=== PATIENT | female | born 1955 ===

== ENCOUNTER 2021-07-19 13:19 | Inpatient (IN) | payer OTHER, MEDICAID ==
[~2021-07-19] VITALS: Ht 165.1 cm; Wt 97.0 kg
[2021-07-19] MEDS ORDERED: FUROSEMIDE 20 MG/2 ML VIAL IV ONE (13:45)
[2021-07-19] MEDS ORDERED: MIDAZOLAM DRIP 50 mg/50mL 50 ML IV ONE (14:09)
[2021-07-19] MEDS ORDERED: ETOMIDATE (2MG/ML) 20ML VIAL IV ONE (14:15)
[2021-07-19] MEDS ORDERED: SUCCINYLCHOLINE CHLORIDE 20 MG/ML 10ML VIAL IV ONE (14:15)
[2021-07-19 14:30] VITALS: BP 137/75
[2021-07-19 15:08] LABS: Basophils # (auto) 0.1 10 ^3/uL (0-0.2); Basophils % (auto) 1.3 % (0.0-2.0); Eosinophils # (auto) 0.1 10 ^3/uL (0-0.8); Eosinophils % (auto) 0.8 % (0.0-7.0); Hematocrit 35.1 % (36.0-46.0); Hemoglobin 11.1 g/dL (12.2-16.2); Lymphocytes # (auto) 2.7 10 ^3/uL (0.4-5.4); Lymphocytes % (auto) 34.6 % (10.0-50.0); Mean Corpuscular Hemoglobin 27.9 pg (28.0-32.0); Mean Corpuscular Hgb Conc. 31.5 g/dL (32.0-36.0); Mean Corpuscular Volume 88.4 fL (80.0-100.0); Monocytes # (auto) 0.8 10 ^3/uL (0-1.3); Monocytes % (auto) 10.5 % (0.0-12.0); Neutrophils # (auto) 4.1 10 ^3/uL (1.6-8.6); Neutrophils % (auto) 52.8 % (37.0-80.0); Nucleated Red Blood Cells % 0.1 %; Red Blood Cells 3.97 10^6/uL (4.0-5.20); Red Cell Distribution Width 20.4 % (11.8-14.3); White Blood Cell 7.7 10^3/uL (4.4-10.8)
[2021-07-19 15:15] VITALS: BP 137/85
[2021-07-19 15:30] LABS: Anion Gap 3 (5-15); Blood Urea Nitrogen 10 mg/dL (7-18); Calcium 8.6 mg/dL (8.5-10.1); Carbon Dioxide 31 mmol/L (21-32); Chloride 106 mmol/L (98-107); Glucose 123 mg/dL (74-106); Potassium 3.8 mmol/L (3.5-5.1); Sodium 140 mmol/L (136-145)
[2021-07-19 15:39] LABS: Alanine Aminotransferase 19 U/L (13-56); Alkaline Phosphatase 90 U/L (45-117); Aspartate Aminotransferase 20 U/L (15-37); BUN/Creatinine Ratio 7.8; Bilirubin, Total 0.6 mg/dL (0.2-1.0); CRP High Sensitivity 4.39 mg/dL (< 0.3); GFR African American 53 mL/min; GFR Non-African American 44 mL/min; Total Protein 7.1 g/dL (6.4-8.2)
[2021-07-19 16:34] VITALS: BP 161/86
[2021-07-19] MEDS: MIDAZOLAM DRIP 50 mg/50mL 50 ML IV SCH ×2 (16:34→17:56)
[2021-07-19] MEDS ORDERED: methylPREDNISolone SOD SUCC 125 MG/2 ML VL ONE (16:38)
[2021-07-19] MEDS ORDERED: methylPREDNISolone SOD SUCC 125 MG/2 ML VL IV ONE (16:45)
[2021-07-19] MEDS: PROPOFOL 100 ML IV SCH (17:00)
[2021-07-19] MEDS: fentaNYL Drip 2500mCg/250mlNS 250 ML IV SCH (17:00)
[2021-07-19 17:30] LABS: Urine WBC None Seen /hpf (0 - 5)
[2021-07-19] MEDS ORDERED: NITROGLYCERIN 0.4 MG SL TAB SL PRN (17:30)
[2021-07-19] MEDS ORDERED: MORPHINE SULFATE INJECTION 2 MG/ML SYRG IV PRN (17:30)
[2021-07-19] MEDS: NOREPINEPHRINE 8 MG/250ML KIT 250 ML IV SCH (18:00)
[2021-07-19] MEDS ORDERED: FUROSEMIDE 100 MG/10ML VIAL IV ONE (18:00)
[2021-07-19] MEDS ORDERED: IPRATROPIUM BROM 0.5 MG/2.5ML INH SOL NEB ONE (18:00)
[2021-07-19] MEDS ORDERED: ALBUTEROL SULF 2.5 MG/0.5ML(0.5%) NEB SOLN NEB SCH (18:00)
[2021-07-19] MEDS ORDERED: MORPHINE SULFATE 4 MG/ML SYR/VIAL IV PRN (18:00)
[2021-07-19] MEDS ORDERED: MEROPENEM 1GM IVPB 100 ML IV ONE (18:00)
[2021-07-19] MEDS ORDERED: ALBUTEROL SULF 2.5 MG/0.5ML(0.5%) NEB SOLN NEB ONE (18:00)
[2021-07-19] MEDS ORDERED: PANTOPRAZOLE 40 MG/10 ML VIAL INJ IV ONE (18:00)
[2021-07-19] MEDS ORDERED: LORazepam 2MG/ML-1ML VIAL IV PRN (18:00)
[2021-07-19] MEDS ORDERED: IPRATROPIUM BROM 0.5 MG/2.5ML INH SOL NEB SCH (18:00)
[2021-07-19] MEDS ORDERED: VANCOMYCIN PER PHARMACY 0 MG IV SCH (18:00)
[2021-07-19 18:04] LABS: Urine Bacteria NONE SEEN /hpf (None Seen); Urine Blood Negative /uL (Negative); Urine Hyaline Cast MOD /lpf (0 - 2); Urine Mucus FEW (None Seen); Urine Specific Gravity 1.015 (1.001-1.035)
[2021-07-19] MEDS ORDERED: SUCRALFATE 1 GM/10 ML ORAL SUSP GT ONE (18:15)
[2021-07-19] MEDS ORDERED: METOPROLOL SUCCINATE XL 50 MG TAB PO ONE (18:15)
[2021-07-19] MEDS ORDERED: MAGNESIUM SULFATE 1GM/100ML 100 ML IV ONE (18:15)
[2021-07-19] MEDS ORDERED: ATORVASTATIN 20 MG TAB PO ONE (18:15)
[2021-07-19 18:37] VITALS: BP 108/61
[2021-07-19 19:37] LABS: Partial Thromboplastin Time 22.9 sec (23.6-33.0)
[2021-07-19 19:50] VITALS: BP 118/71
[2021-07-19] MEDS ORDERED: ACETAMINOPHEN 325 MG RECT SUPP PR PRN (20:30)
[2021-07-19] MEDS: FUROSEMIDE 40 MG/4 ML VIAL IV SCH (21:11)
[2021-07-19] MEDS: VANCOMYCIN 1GM/250ML 250 ML IV SCH (22:14)
[2021-07-19 22:18] VITALS: BP 124/76
[2021-07-19] MEDS: methylPREDNISolone SOD SUCC 40 MG/ML VL IV SCH (22:43)
[2021-07-19] MEDS: SUCRALFATE 1 GM/10 ML ORAL SUSP GT SCH (22:55)
[2021-07-19] MEDS: POTASSIUM EFFERVESENT TAB 25 MEQ GT SCH (22:56)
[2021-07-20] VITALS (67 sets, daily range): BP systolic 91–139; BP diastolic 56–85
[2021-07-20] MEDS: MIDAZOLAM DRIP 50 mg/50mL 50 ML IV SCH ×4 (00:19→23:40)
[2021-07-20] MEDS: MEROPENEM 1GM IVPB 100 ML IV SCH ×3 (02:19→17:13)
[2021-07-20] MEDS: methylPREDNISolone SOD SUCC 40 MG/ML VL IV SCH ×3 (06:05→22:22)
[2021-07-20] MEDS: FUROSEMIDE 40 MG/4 ML VIAL IV SCH ×2 (06:05→17:12)
[2021-07-20] MEDS: SUCRALFATE 1 GM/10 ML ORAL SUSP GT SCH ×4 (06:58→22:22)
[2021-07-20] MEDS: IPRATROPIUM BROM 0.5 MG/2.5ML INH SOL NEB PRN (06:59)
[2021-07-20] MEDS: ALBUTEROL SULF 2.5 MG/0.5ML(0.5%) NEB SOLN NEB PRN (06:59)
[2021-07-20 07:43] LABS: Basophils # (auto) 0 10 ^3/uL (0-0.2); Basophils % (auto) 0.3 % (0.0-2.0); Eosinophils # (auto) 0 10 ^3/uL (0-0.8); Eosinophils % (auto) 0.1 % (0.0-7.0); Hematocrit 39.6 % (36.0-46.0); Hemoglobin 12.4 g/dL (12.2-16.2); Lymphocytes # (auto) 1.5 10 ^3/uL (0.4-5.4); Mean Corpuscular Hemoglobin 27.8 pg (28.0-32.0); Mean Corpuscular Hgb Conc. 31.4 g/dL (32.0-36.0); Mean Corpuscular Volume 88.5 fL (80.0-100.0); Monocytes # (auto) 0.1 10 ^3/uL (0-1.3); Monocytes % (auto) 1.9 % (0.0-12.0); Neutrophils # (auto) 4.8 10 ^3/uL (1.6-8.6); Neutrophils % (auto) 74.7 % (37.0-80.0); Nucleated Red Blood Cells % 0.3 %; Red Blood Cells 4.47 10^6/uL (4.0-5.20); Red Cell Distribution Width 19.8 % (11.8-14.3); White Blood Cell 6.4 10^3/uL (4.4-10.8)
[2021-07-20 08:03] LABS: BUN/Creatinine Ratio 9.2; Calcium 8.9 mg/dL (8.5-10.1); Potassium 3.6 mmol/L (3.5-5.1)
[2021-07-20] MEDS: fentaNYL Drip 2500mCg/250mlNS 250 ML IV SCH (08:30)
[2021-07-20] MEDS: METOPROLOL SUCCINATE XL 50 MG TAB PO SCH (10:00)
[2021-07-20] MEDS ORDERED: ENOXAPARIN SOD 40 MG/0.4 ML SYRINGE SC SCH (10:00)
[2021-07-20] MEDS: POTASSIUM EFFERVESENT TAB 25 MEQ GT SCH ×2 (10:27→22:22)
[2021-07-20] MEDS: PANTOPRAZOLE 40 MG/10 ML VIAL INJ IV SCH (10:27)
[2021-07-20] MEDS: VANCOMYCIN 1GM/250ML 250 ML IV SCH ×2 (10:27→21:32)
[2021-07-20] MEDS: ASPirin 81 mg TAB PO SCH (10:28)
[2021-07-20] MEDS: ALLOPURINOL 100 MG TAB PO SCH (10:29)
[2021-07-20] MEDS: PROPOFOL 100 ML IV SCH (10:30)
[2021-07-20] MEDS: ISOSORBIDE MONONITRATE ER 60 MG TAB PO SCH (10:44)
[2021-07-20] MEDS ORDERED: ENOXAPARIN SOD 40 MG/0.4 ML SYRINGE SC ONE (12:30)
[2021-07-20] MEDS: NOREPINEPHRINE 8 MG/250ML KIT 250 ML IV SCH (17:12)
[2021-07-20] MEDS: ATORVASTATIN 20 MG TAB PO SCH (22:22)
[2021-07-21] VITALS (97 sets, daily range): BP systolic 86–127; BP diastolic 53–77
[2021-07-21] MEDS: NOREPINEPHRINE 8 MG/250ML KIT 250 ML IV SCH (01:37)
[2021-07-21] MEDS: methylPREDNISolone SOD SUCC 40 MG/ML VL IV SCH (06:00)
[2021-07-21] MEDS: FUROSEMIDE 40 MG/4 ML VIAL IV SCH ×2 (06:00→16:54)
[2021-07-21] MEDS: MEROPENEM 1GM IVPB 100 ML IV SCH ×2 (06:00→16:54)
[2021-07-21] MEDS: SUCRALFATE 1 GM/10 ML ORAL SUSP GT SCH ×4 (07:00→22:51)
[2021-07-21 07:20] LABS: Mean Corpuscular Volume 87.1 fL (80.0-100.0)
[2021-07-21 07:23] LABS: Calcium 8.9 mg/dL (8.5-10.1); Hematocrit 35.5 % (36.0-46.0); Hemoglobin 11.6 g/dL (12.2-16.2); Mean Corpuscular Hemoglobin 28.6 pg (28.0-32.0); Mean Corpuscular Hgb Conc. 32.8 g/dL (32.0-36.0); Potassium 3.3 mmol/L (3.5-5.1); Red Blood Cells 4.08 10^6/uL (4.0-5.20); White Blood Cell 10.5 10^3/uL (4.4-10.8)
[2021-07-21 07:25] LABS: BUN/Creatinine Ratio 15.4
[2021-07-21 07:31] LABS: Red Cell Distribution Width 20.4 % (11.8-14.3)
[2021-07-21 07:32] LABS: Basophils % (manual) 0 (0.0-2.0); Blast Cells 0; Eosinophils % (manual) 0 (0-7); Metamyelocytes % 0; Myelocytes % 0; Promyelocytes % 0; Reactive Lymphocytes 0
[2021-07-21] MEDS: METOPROLOL SUCCINATE XL 50 MG TAB PO SCH (08:02)
[2021-07-21] MEDS: ISOSORBIDE MONONITRATE ER 60 MG TAB PO SCH (08:02)
[2021-07-21] MEDS: VANCOMYCIN 1GM/250ML 250 ML IV SCH ×2 (08:14→15:45)
[2021-07-21 08:53] LABS: Band Neutrophils % (manual) 1; Lymphocytes % (manual) 8 (10.0-50.0); Monocytes % (manual) 1 (0-12)
[2021-07-21] MEDS: PANTOPRAZOLE 40 MG/10 ML VIAL INJ IV SCH (09:38)
[2021-07-21] MEDS: POTASSIUM EFFERVESENT TAB 25 MEQ GT SCH ×2 (09:38→22:52)
[2021-07-21] MEDS: ASPirin 81 mg TAB PO SCH (09:38)
[2021-07-21] MEDS: ALLOPURINOL 100 MG TAB PO SCH (09:38)
[2021-07-21] MEDS: ENOXAPARIN SOD 40 MG/0.4 ML SYRINGE SC SCH (09:38)
[2021-07-21] MEDS: fentaNYL Drip 2500mCg/250mlNS 250 ML IV SCH (13:19)
[2021-07-21] MEDS: PROPOFOL 100 ML IV SCH (13:19)
[2021-07-21] MEDS ORDERED: FUROSEMIDE 20 MG/2 ML VIAL ONE (15:35)
[2021-07-21] MEDS ORDERED: MAGNESIUM SULFATE 1GM/100ML 100 ML IV ONE (16:00)
[2021-07-21] MEDS ORDERED: POTASSIUM CHL 20MEQ/100ML 100 ML IV ONE (16:00)
[2021-07-21] MEDS: ATORVASTATIN 20 MG TAB PO SCH (22:52)
[2021-07-22] VITALS (87 sets, daily range): BP systolic 93–159; BP diastolic 54–94
[2021-07-22] MEDS: MIDAZOLAM DRIP 50 mg/50mL 50 ML IV SCH (04:29)
[2021-07-22] MEDS: fentaNYL Drip 2500mCg/250mlNS 250 ML IV SCH (04:30)
[2021-07-22 05:19] LABS: Basophils # (auto) 0 10 ^3/uL (0-0.2); Basophils % (auto) 0.4 % (0.0-2.0); Eosinophils # (auto) 0 10 ^3/uL (0-0.8); Hematocrit 38.8 % (36.0-46.0); Hemoglobin 12.5 g/dL (12.2-16.2); Lymphocytes # (auto) 0.8 10 ^3/uL (0.4-5.4); Lymphocytes % (auto) 6.7 % (10.0-50.0); Mean Corpuscular Hemoglobin 27.5 pg (28.0-32.0); Mean Corpuscular Hgb Conc. 32.1 g/dL (32.0-36.0); Mean Corpuscular Volume 85.7 fL (80.0-100.0); Monocytes # (auto) 0.8 10 ^3/uL (0-1.3); Neutrophils # (auto) 10.1 10 ^3/uL (1.6-8.6); Neutrophils % (auto) 85.9 % (37.0-80.0); Red Blood Cells 4.53 10^6/uL (4.0-5.20); White Blood Cell 11.8 10^3/uL (4.4-10.8)
[2021-07-22 05:29] LABS: Red Cell Distribution Width 20.2 % (11.8-14.3)
[2021-07-22 05:50] LABS: Calcium 9.6 mg/dL (8.5-10.1); Potassium 3.1 mmol/L (3.5-5.1)
[2021-07-22 05:53] LABS: BUN/Creatinine Ratio 20.9
[2021-07-22] MEDS: FUROSEMIDE 40 MG/4 ML VIAL IV SCH ×2 (06:00→17:45)
[2021-07-22] MEDS: SUCRALFATE 1 GM/10 ML ORAL SUSP GT SCH ×4 (07:00→22:07)
[2021-07-22] MEDS: MEROPENEM 1GM IVPB 100 ML IV SCH ×3 (07:17→22:08)
[2021-07-22] MEDS: PROPOFOL 100 ML IV SCH (08:12)
[2021-07-22] MEDS: NOREPINEPHRINE 8 MG/250ML KIT 250 ML IV SCH (08:12)
[2021-07-22] MEDS: ISOSORBIDE MONONITRATE ER 60 MG TAB PO SCH (08:23)
[2021-07-22] MEDS: POTASSIUM EFFERVESENT TAB 25 MEQ GT SCH ×2 (08:56→22:08)
[2021-07-22] MEDS: ASPirin 81 mg TAB PO SCH (08:56)
[2021-07-22] MEDS: PANTOPRAZOLE 40 MG/10 ML VIAL INJ IV SCH (08:56)
[2021-07-22] MEDS: ALLOPURINOL 100 MG TAB PO SCH (08:56)
[2021-07-22] MEDS: ENOXAPARIN SOD 40 MG/0.4 ML SYRINGE SC SCH (08:56)
[2021-07-22] MEDS ORDERED: DOPamine 1600MCG/ML D5W 250 ML IV ONE (09:10)
[2021-07-22] MEDS: DOPamine 1600MCG/ML D5W 250 ML IV SCH ×2 (09:37→18:37)
[2021-07-22] MEDS: VANCOMYCIN 1GM/250ML 250 ML IV SCH (09:58)
[2021-07-22] MEDS ORDERED: ENOXAPARIN SOD 40 MG/0.4 ML SYRINGE SC ONE (14:45)
[2021-07-22 14:47] LABS: Magnesium 1.8 mg/dL (1.6-2.6)
[2021-07-22 14:57] LABS: Potassium 2.8 mmol/L (3.5-5.1)
[2021-07-22] MEDS ORDERED: POTASSIUM EFFERVESENT TAB 25 MEQ GT ONE (15:00)
[2021-07-22] MEDS ORDERED: POTASSIUM CHL 20MEQ/100ML 100 ML IV ONE (15:04)
[2021-07-22] MEDS: POTASSIUM CHL 20MEQ/100ML 100 ML IV SCH ×2 (15:24→17:42)
[2021-07-22] MEDS ORDERED: IOHEXOL 350 MG/ML 100ML IJ ONE (19:44)
[2021-07-22] MEDS: ATORVASTATIN 20 MG TAB PO SCH (22:08)
[2021-07-23] VITALS (96 sets, daily range): BP systolic 76–154; BP diastolic 52–98
[2021-07-23] MEDS: MIDAZOLAM DRIP 50 mg/50mL 50 ML IV SCH ×4 (00:36→17:48)
[2021-07-23] MEDS: fentaNYL Drip 2500mCg/250mlNS 250 ML IV SCH ×2 (01:31→17:41)
[2021-07-23] MEDS: DOPamine 1600MCG/ML D5W 250 ML IV SCH ×2 (03:11→11:58)
[2021-07-23] MEDS: VANCOMYCIN 1GM/250ML 250 ML IV SCH ×2 (04:21→20:12)
[2021-07-23 05:45] LABS: Basophils # (auto) 0.1 10 ^3/uL (0-0.2); Basophils % (auto) 0.8 % (0.0-2.0); Eosinophils # (auto) 0 10 ^3/uL (0-0.8); Eosinophils % (auto) 0.2 % (0.0-7.0); Hemoglobin 14.1 g/dL (12.2-16.2); Lymphocytes % (auto) 19.8 % (10.0-50.0); Mean Corpuscular Hemoglobin 27.8 pg (28.0-32.0); Mean Corpuscular Hgb Conc. 32.2 g/dL (32.0-36.0); Mean Corpuscular Volume 86.4 fL (80.0-100.0); Monocytes # (auto) 1.4 10 ^3/uL (0-1.3); Monocytes % (auto) 13.5 % (0.0-12.0); Neutrophils # (auto) 6.6 10 ^3/uL (1.6-8.6); Neutrophils % (auto) 65.7 % (37.0-80.0); Nucleated Red Blood Cells % 0.3 %; Red Blood Cells 5.09 10^6/uL (4.0-5.20)
[2021-07-23 05:56] LABS: INR 1.06 (0.9-1.15); Partial Thromboplastin Time 27.6 sec (23.6-33.0)
[2021-07-23 05:59] LABS: Red Cell Distribution Width 20.8 % (11.8-14.3)
[2021-07-23] MEDS: IPRATROPIUM BROM 0.5 MG/2.5ML INH SOL NEB PRN (06:08)
[2021-07-23] MEDS: ALBUTEROL SULF 2.5 MG/0.5ML(0.5%) NEB SOLN NEB PRN (06:08)
[2021-07-23 06:18] LABS: Calcium 9.9 mg/dL (8.5-10.1); Potassium 3.3 mmol/L (3.5-5.1)
[2021-07-23 06:19] LABS: BUN/Creatinine Ratio 18.2
[2021-07-23] MEDS: SUCRALFATE 1 GM/10 ML ORAL SUSP GT SCH ×4 (07:00→21:18)
[2021-07-23] MEDS: MEROPENEM 1GM IVPB 100 ML IV SCH ×3 (08:03→21:51)
[2021-07-23] MEDS: FUROSEMIDE 40 MG/4 ML VIAL IV SCH ×2 (08:03→17:41)
[2021-07-23] MEDS: ISOSORBIDE MONONITRATE ER 60 MG TAB PO SCH (10:00)
[2021-07-23] MEDS: POTASSIUM EFFERVESENT TAB 25 MEQ GT SCH ×2 (10:00→20:12)
[2021-07-23] MEDS: ALLOPURINOL 100 MG TAB PO SCH (10:00)
[2021-07-23] MEDS: ASPirin 81 mg TAB PO SCH (10:00)
[2021-07-23] MEDS: ENOXAPARIN SOD 40 MG/0.4 ML SYRINGE SC SCH (10:00)
[2021-07-23] MEDS ORDERED: POTASSIUM CHL 20MEQ/100ML 100 ML IV ONE ×2 (10:15)
[2021-07-23] MEDS: PANTOPRAZOLE 40 MG/10 ML VIAL INJ IV SCH (10:24)
[2021-07-23] MEDS ORDERED: LIDOCAINE 2%HCL (LOCAL ANESTH.) INJ 20ML MDV ONE (12:20)
[2021-07-23] MEDS: PROPOFOL 100 ML IV SCH (17:00)
[2021-07-23] MEDS: NOREPINEPHRINE 8 MG/250ML KIT 250 ML IV SCH (18:00)
[2021-07-23] MEDS: ATORVASTATIN 20 MG TAB PO SCH (20:13)
[2021-07-24] VITALS (75 sets, daily range): BP systolic 92–144; BP diastolic 53–88
[2021-07-24] MEDS: DOPamine 1600MCG/ML D5W 250 ML IV SCH (00:33)
[2021-07-24 04:51] LABS: Basophils # (auto) 0.1 10 ^3/uL (0-0.2); Basophils % (auto) 0.9 % (0.0-2.0); Eosinophils # (auto) 0.2 10 ^3/uL (0-0.8); Eosinophils % (auto) 1.7 % (0.0-7.0); Hemoglobin 14.4 g/dL (12.2-16.2); Lymphocytes # (auto) 3.1 10 ^3/uL (0.4-5.4); Lymphocytes % (auto) 28.2 % (10.0-50.0); Mean Corpuscular Hemoglobin 27.6 pg (28.0-32.0); Mean Corpuscular Hgb Conc. 32.1 g/dL (32.0-36.0); Mean Corpuscular Volume 85.9 fL (80.0-100.0); Monocytes # (auto) 1.3 10 ^3/uL (0-1.3); Neutrophils # (auto) 6.2 10 ^3/uL (1.6-8.6); Neutrophils % (auto) 57.2 % (37.0-80.0); Nucleated Red Blood Cells % 0.1 %; Red Blood Cells 5.23 10^6/uL (4.0-5.20); White Blood Cell 10.9 10^3/uL (4.4-10.8)
[2021-07-24 05:18] LABS: Red Cell Distribution Width 20.4 % (11.8-14.3)
[2021-07-24 05:24] LABS: BUN/Creatinine Ratio 22.3; Calcium 10.2 mg/dL (8.5-10.1); Potassium 3.6 mmol/L (3.5-5.1)
[2021-07-24] MEDS: FUROSEMIDE 40 MG/4 ML VIAL IV SCH ×2 (06:00→17:24)
[2021-07-24] MEDS: MEROPENEM 1GM IVPB 100 ML IV SCH ×3 (06:00→21:38)
[2021-07-24] MEDS: IPRATROPIUM BROM 0.5 MG/2.5ML INH SOL NEB PRN (06:13)
[2021-07-24] MEDS: ALBUTEROL SULF 2.5 MG/0.5ML(0.5%) NEB SOLN NEB PRN (06:13)
[2021-07-24] MEDS: SUCRALFATE 1 GM/10 ML ORAL SUSP GT SCH ×4 (06:30→21:38)
[2021-07-24] MEDS: POTASSIUM EFFERVESENT TAB 25 MEQ GT SCH ×2 (08:00→21:39)
[2021-07-24] MEDS: ENOXAPARIN SOD 40 MG/0.4 ML SYRINGE SC SCH (08:38)
[2021-07-24] MEDS: ISOSORBIDE MONONITRATE ER 60 MG TAB PO SCH (08:38)
[2021-07-24] MEDS: ALLOPURINOL 100 MG TAB PO SCH (08:38)
[2021-07-24] MEDS: ASPirin 81 mg TAB PO SCH (08:39)
[2021-07-24] MEDS: MIDAZOLAM DRIP 50 mg/50mL 50 ML IV SCH ×3 (08:40→17:24)
[2021-07-24] MEDS: PANTOPRAZOLE 40 MG/10 ML VIAL INJ IV SCH (08:51)
[2021-07-24] MEDS ORDERED: methylPREDNISolone SOD SUCC 40 MG/ML VL IV ONE (10:15)
[2021-07-24] MEDS ORDERED: DEXTROSE (50%) 50ML SYRG IV PRN (10:15)
[2021-07-24] MEDS: InsuLIN REG 1unit/0.01ml Soln (100units/ml) SC SCH ×2 (12:05→17:11)
[2021-07-24] MEDS: ACCU-CHEK COMFORT CURVE STRIP VI SCH ×2 (12:06→17:26)
[2021-07-24] MEDS ORDERED: VANCOMYCIN HCL 1000 MG VL ONE (15:01)
[2021-07-24] MEDS: PROPOFOL 100 ML IV SCH (17:00)
[2021-07-24] MEDS: fentaNYL Drip 2500mCg/250mlNS 250 ML IV SCH (17:50)
[2021-07-24] MEDS: NOREPINEPHRINE 8 MG/250ML KIT 250 ML IV SCH (18:00)
[2021-07-24] MEDS: ATORVASTATIN 20 MG TAB PO SCH (21:38)
[2021-07-25] VITALS (83 sets, daily range): BP systolic 92–167; BP diastolic 59–101
[2021-07-25] MEDS: InsuLIN REG 1unit/0.01ml Soln (100units/ml) SC SCH ×4 (00:02→18:06)
[2021-07-25] MEDS: ACCU-CHEK COMFORT CURVE STRIP VI SCH ×4 (00:05→18:05)
[2021-07-25] MEDS: MIDAZOLAM DRIP 50 mg/50mL 50 ML IV SCH ×2 (02:06→06:41)
[2021-07-25] MEDS: DOPamine 1600MCG/ML D5W 250 ML IV SCH ×2 (02:30→15:33)
[2021-07-25 05:01] LABS: Basophils # (auto) 0 10 ^3/uL (0-0.2); Basophils % (auto) 0.3 % (0.0-2.0); Eosinophils # (auto) 0 10 ^3/uL (0-0.8); Eosinophils % (auto) 0.2 % (0.0-7.0); Hemoglobin 12.6 g/dL (12.2-16.2); Lymphocytes # (auto) 1.8 10 ^3/uL (0.4-5.4); Lymphocytes % (auto) 14.7 % (10.0-50.0); Mean Corpuscular Hemoglobin 27.1 pg (28.0-32.0); Mean Corpuscular Hgb Conc. 31.4 g/dL (32.0-36.0); Mean Corpuscular Volume 86.3 fL (80.0-100.0); Monocytes # (auto) 0.9 10 ^3/uL (0-1.3); Monocytes % (auto) 7.3 % (0.0-12.0); Neutrophils # (auto) 9.6 10 ^3/uL (1.6-8.6); Neutrophils % (auto) 77.5 % (37.0-80.0); Nucleated Red Blood Cells % 0.2 %; Red Blood Cells 4.64 10^6/uL (4.0-5.20); White Blood Cell 12.4 10^3/uL (4.4-10.8)
[2021-07-25 05:17] LABS: Red Cell Distribution Width 20.3 % (11.8-14.3)
[2021-07-25 05:22] LABS: Potassium 4.2 mmol/L (3.5-5.1)
[2021-07-25 05:28] LABS: BUN/Creatinine Ratio 29.8; Calcium 9.5 mg/dL (8.5-10.1)
[2021-07-25] MEDS: ALBUTEROL SULF 2.5 MG/0.5ML(0.5%) NEB SOLN NEB PRN ×2 (06:08→10:05)
[2021-07-25] MEDS: IPRATROPIUM BROM 0.5 MG/2.5ML INH SOL NEB PRN ×2 (06:08→10:05)
[2021-07-25] MEDS: MEROPENEM 1GM IVPB 100 ML IV SCH ×3 (06:14→21:16)
[2021-07-25] MEDS: FUROSEMIDE 40 MG/4 ML VIAL IV SCH ×2 (06:14→18:05)
[2021-07-25] MEDS: SUCRALFATE 1 GM/10 ML ORAL SUSP GT SCH ×4 (06:39→21:16)
[2021-07-25] MEDS: fentaNYL Drip 2500mCg/250mlNS 250 ML IV SCH (06:42)
[2021-07-25] MEDS ORDERED: METO25TA5 PO (09:19)
[2021-07-25] MEDS ORDERED: MONT10TA42 PO (09:19)
[2021-07-25] MEDS ORDERED: LEVO-28 PO (09:19)
[2021-07-25] MEDS ORDERED: FURO40TA4 PO (09:19)
[2021-07-25] MEDS ORDERED: PRED10TA PO (09:19)
[2021-07-25] MEDS ORDERED: HYDR-4296 PO (09:19)
[2021-07-25] MEDS ORDERED: OLAN1TAB7 PO (09:19)
[2021-07-25] MEDS ORDERED: DOXY100C2 PO (09:19)
[2021-07-25] MEDS ORDERED: POTA-220 PO (09:19)
[2021-07-25] MEDS ORDERED: AMLO-489 PO (09:19)
[2021-07-25] MEDS ORDERED: GABA100C9 PO (09:22)
[2021-07-25] MEDS ORDERED: SUCR1SUS16 PO (09:22)
[2021-07-25] MEDS ORDERED: ALLO100T PO (09:22)
[2021-07-25] MEDS: PANTOPRAZOLE 40 MG/10 ML VIAL INJ IV SCH (09:47)
[2021-07-25] MEDS: methylPREDNISolone SOD SUCC 40 MG/ML VL IV SCH (09:48)
[2021-07-25] MEDS: ASPirin 81 mg TAB PO SCH (09:48)
[2021-07-25] MEDS: ALLOPURINOL 100 MG TAB PO SCH (09:48)
[2021-07-25] MEDS: ISOSORBIDE MONONITRATE ER 60 MG TAB PO SCH (09:49)
[2021-07-25] MEDS: ENOXAPARIN SOD 40 MG/0.4 ML SYRINGE SC SCH (13:09)
[2021-07-25] MEDS: PROPOFOL 100 ML IV SCH (17:00)
[2021-07-25] MEDS: NOREPINEPHRINE 8 MG/250ML KIT 250 ML IV SCH (17:22)
[2021-07-25 18:45] LABS: Lactic Acid w/Reflex 2.7 mmol/L (0.4-2.0)
[2021-07-25] MEDS: ATORVASTATIN 20 MG TAB PO SCH (21:16)
[2021-07-26] VITALS (93 sets, daily range): BP systolic 96–160; BP diastolic 64–97
[2021-07-26] MEDS: InsuLIN REG 1unit/0.01ml Soln (100units/ml) SC SCH ×5 (00:01→23:37)
[2021-07-26] MEDS: ACCU-CHEK COMFORT CURVE STRIP VI SCH ×5 (00:02→23:37)
[2021-07-26] MEDS: DOPamine 1600MCG/ML D5W 250 ML IV SCH ×2 (04:36→17:39)
[2021-07-26 04:43] LABS: Basophils # (auto) 0.1 10 ^3/uL (0-0.2); Basophils % (auto) 0.8 % (0.0-2.0); Eosinophils # (auto) 0.1 10 ^3/uL (0-0.8); Eosinophils % (auto) 0.7 % (0.0-7.0); Hematocrit 40.6 % (36.0-46.0); Hemoglobin 12.9 g/dL (12.2-16.2); Lymphocytes # (auto) 1.5 10 ^3/uL (0.4-5.4); Lymphocytes % (auto) 18.3 % (10.0-50.0); Mean Corpuscular Hemoglobin 27.6 pg (28.0-32.0); Mean Corpuscular Hgb Conc. 31.9 g/dL (32.0-36.0); Mean Corpuscular Volume 86.6 fL (80.0-100.0); Monocytes # (auto) 0.8 10 ^3/uL (0-1.3); Monocytes % (auto) 9.8 % (0.0-12.0); Neutrophils # (auto) 5.6 10 ^3/uL (1.6-8.6); Neutrophils % (auto) 70.4 % (37.0-80.0); Red Blood Cells 4.68 10^6/uL (4.0-5.20); Red Cell Distribution Width 19.9 % (11.8-14.3); White Blood Cell 7.9 10^3/uL (4.4-10.8)
[2021-07-26 05:03] LABS: Potassium 3.8 mmol/L (3.5-5.1)
[2021-07-26 05:07] LABS: BUN/Creatinine Ratio 39.8; Calcium 10.1 mg/dL (8.5-10.1)
[2021-07-26] MEDS: MEROPENEM 1GM IVPB 100 ML IV SCH ×3 (06:02→21:16)
[2021-07-26] MEDS: SUCRALFATE 1 GM/10 ML ORAL SUSP GT SCH ×4 (06:03→21:15)
[2021-07-26] MEDS: IPRATROPIUM BROM 0.5 MG/2.5ML INH SOL NEB PRN ×2 (06:23→15:38)
[2021-07-26] MEDS: ALBUTEROL SULF 2.5 MG/0.5ML(0.5%) NEB SOLN NEB PRN ×2 (06:23→15:38)
[2021-07-26] MEDS: FUROSEMIDE 40 MG/4 ML VIAL IV SCH (06:42)
[2021-07-26] MEDS: ISOSORBIDE MONONITRATE ER 60 MG TAB PO SCH (10:00)
[2021-07-26] MEDS: MIDAZOLAM DRIP 50 mg/50mL 50 ML IV SCH (14:15)
[2021-07-26] MEDS: methylPREDNISolone SOD SUCC 40 MG/ML VL IV SCH (15:36)
[2021-07-26] MEDS: PANTOPRAZOLE 40 MG/10 ML VIAL INJ IV SCH (15:37)
[2021-07-26] MEDS: ENOXAPARIN SOD 40 MG/0.4 ML SYRINGE SC SCH (15:39)
[2021-07-26] MEDS: PROPOFOL 100 ML IV SCH (17:00)
[2021-07-26] MEDS: NOREPINEPHRINE 8 MG/250ML KIT 250 ML IV SCH (18:00)
[2021-07-26] MEDS: ALLOPURINOL 100 MG TAB PO SCH (18:01)
[2021-07-26] MEDS: ASPirin 81 mg TAB PO SCH (18:01)
[2021-07-26] MEDS: fentaNYL Drip 2500mCg/250mlNS 250 ML IV SCH (18:13)
[2021-07-26] MEDS: ATORVASTATIN 20 MG TAB PO SCH (21:16)
[2021-07-27] VITALS (94 sets, daily range): BP systolic 111–162; BP diastolic 66–109
[2021-07-27] MEDS: MEROPENEM 1GM IVPB 100 ML IV SCH ×3 (05:25→19:22)
[2021-07-27] MEDS: InsuLIN REG 1unit/0.01ml Soln (100units/ml) SC SCH ×2 (05:26→19:27)
[2021-07-27] MEDS: ACCU-CHEK COMFORT CURVE STRIP VI SCH ×2 (05:36→19:27)
[2021-07-27 06:40] LABS: Basophils # (auto) 0 10 ^3/uL (0-0.2); Basophils % (auto) 0.4 % (0.0-2.0); Eosinophils # (auto) 0.1 10 ^3/uL (0-0.8); Eosinophils % (auto) 1.2 % (0.0-7.0); Hematocrit 39.8 % (36.0-46.0); Hemoglobin 12.7 g/dL (12.2-16.2); Lymphocytes # (auto) 1.5 10 ^3/uL (0.4-5.4); Lymphocytes % (auto) 20.4 % (10.0-50.0); Mean Corpuscular Hemoglobin 27.5 pg (28.0-32.0); Mean Corpuscular Hgb Conc. 31.8 g/dL (32.0-36.0); Mean Corpuscular Volume 86.4 fL (80.0-100.0); Monocytes # (auto) 0.5 10 ^3/uL (0-1.3); Monocytes % (auto) 6.9 % (0.0-12.0); Neutrophils # (auto) 5.2 10 ^3/uL (1.6-8.6); Neutrophils % (auto) 71.1 % (37.0-80.0); Nucleated Red Blood Cells % 0.3 %; Red Cell Distribution Width 19.1 % (11.8-14.3); White Blood Cell 7.3 10^3/uL (4.4-10.8)
[2021-07-27] MEDS: DOPamine 1600MCG/ML D5W 250 ML IV SCH ×2 (06:42→19:45)
[2021-07-27 06:52] LABS: Potassium 3.6 mmol/L (3.5-5.1)
[2021-07-27 06:56] LABS: BUN/Creatinine Ratio 53.5
[2021-07-27] MEDS: MIDAZOLAM DRIP 50 mg/50mL 50 ML IV SCH (14:15)
[2021-07-27] MEDS: SUCRALFATE 1 GM/10 ML ORAL SUSP GT SCH ×4 (16:53→22:06)
[2021-07-27] MEDS: PANTOPRAZOLE 40 MG/10 ML VIAL INJ IV SCH (16:54)
[2021-07-27] MEDS: ALLOPURINOL 100 MG TAB PO SCH (16:55)
[2021-07-27] MEDS: ASPirin 81 mg TAB PO SCH (16:55)
[2021-07-27] MEDS: PROPOFOL 100 ML IV SCH (17:00)
[2021-07-27] MEDS: fentaNYL Drip 2500mCg/250mlNS 250 ML IV SCH (17:00)
[2021-07-27] MEDS: NOREPINEPHRINE 8 MG/250ML KIT 250 ML IV SCH (18:00)
[2021-07-27] MEDS: methylPREDNISolone SOD SUCC 40 MG/ML VL IV SCH (19:21)
[2021-07-27] MEDS: ENOXAPARIN SOD 40 MG/0.4 ML SYRINGE SC SCH (19:21)
[2021-07-27] MEDS: ATORVASTATIN 20 MG TAB PO SCH (22:05)
[2021-07-28] VITALS (95 sets, daily range): BP systolic 101–192; BP diastolic 65–101
[2021-07-28] MEDS: InsuLIN REG 1unit/0.01ml Soln (100units/ml) SC SCH ×4 (01:03→18:00)
[2021-07-28] MEDS: ACCU-CHEK COMFORT CURVE STRIP VI SCH ×4 (01:03→18:29)
[2021-07-28 05:33] LABS: Potassium 3.1 mmol/L (3.5-5.1)
[2021-07-28 05:40] LABS: BUN/Creatinine Ratio 51.8; Calcium 10.6 mg/dL (8.5-10.1)
[2021-07-28] MEDS: MEROPENEM 1GM IVPB 100 ML IV SCH ×3 (06:24→22:00)
[2021-07-28] MEDS: SUCRALFATE 1 GM/10 ML ORAL SUSP GT SCH ×4 (06:25→22:00)
[2021-07-28 08:37] LABS: Basophils # (auto) 0 10 ^3/uL (0-0.2); Basophils % (auto) 0.5 % (0.0-2.0); Eosinophils # (auto) 0.1 10 ^3/uL (0-0.8); Eosinophils % (auto) 0.8 % (0.0-7.0); Hematocrit 38.2 % (36.0-46.0); Hemoglobin 12.2 g/dL (12.2-16.2); Lymphocytes # (auto) 3.3 10 ^3/uL (0.4-5.4); Lymphocytes % (auto) 35.2 % (10.0-50.0); Mean Corpuscular Hemoglobin 27.8 pg (28.0-32.0); Mean Corpuscular Hgb Conc. 31.9 g/dL (32.0-36.0); Mean Corpuscular Volume 87.2 fL (80.0-100.0); Monocytes # (auto) 1.1 10 ^3/uL (0-1.3); Monocytes % (auto) 11.7 % (0.0-12.0); Neutrophils # (auto) 4.9 10 ^3/uL (1.6-8.6); Neutrophils % (auto) 51.8 % (37.0-80.0); Nucleated Red Blood Cells % 2.1 %; Red Blood Cells 4.38 10^6/uL (4.0-5.20); Red Cell Distribution Width 19.7 % (11.8-14.3); White Blood Cell 9.5 10^3/uL (4.4-10.8)
[2021-07-28] MEDS: DOPamine 1600MCG/ML D5W 250 ML IV SCH (08:48)
[2021-07-28] MEDS: POTASSIUM CHL 20MEQ/100ML 100 ML IV SCH ×2 (09:44→12:10)
[2021-07-28] MEDS: D5W 5% 1,000 ML IV SCH (09:45)
[2021-07-28] MEDS: ISOSORBIDE MONONITRATE ER 60 MG TAB PO SCH ×2 (10:00→10:18)
[2021-07-28] MEDS: PANTOPRAZOLE 40 MG/10 ML VIAL INJ IV SCH (10:28)
[2021-07-28] MEDS: ENOXAPARIN SOD 40 MG/0.4 ML SYRINGE SC SCH (10:29)
[2021-07-28] MEDS: methylPREDNISolone SOD SUCC 40 MG/ML VL IV SCH (10:29)
[2021-07-28] MEDS: ASPirin 81 mg TAB PO SCH (10:29)
[2021-07-28] MEDS: ALLOPURINOL 100 MG TAB PO SCH (10:29)
[2021-07-28] MEDS: MIDAZOLAM DRIP 50 mg/50mL 50 ML IV SCH (14:15)
[2021-07-28] MEDS: fentaNYL Drip 2500mCg/250mlNS 250 ML IV SCH (17:00)
[2021-07-28] MEDS: PROPOFOL 100 ML IV SCH (17:00)
[2021-07-28] MEDS: NOREPINEPHRINE 8 MG/250ML KIT 250 ML IV SCH (18:00)
[2021-07-28] MEDS: ALBUTEROL SULF 2.5 MG/0.5ML(0.5%) NEB SOLN NEB PRN (18:20)
[2021-07-28] MEDS: IPRATROPIUM BROM 0.5 MG/2.5ML INH SOL NEB PRN (18:20)
[2021-07-28] MEDS: ATORVASTATIN 20 MG TAB PO SCH (22:00)
[2021-07-29] VITALS (72 sets, daily range): BP systolic 121–189; BP diastolic 79–106
[2021-07-29] MEDS: ACCU-CHEK COMFORT CURVE STRIP VI SCH ×4 (00:39→17:59)
[2021-07-29] MEDS: InsuLIN REG 1unit/0.01ml Soln (100units/ml) SC SCH ×4 (00:39→18:07)
[2021-07-29] MEDS: D5W 5% 1,000 ML IV SCH ×2 (06:30→08:37)
[2021-07-29] MEDS: MEROPENEM 1GM IVPB 100 ML IV SCH (06:38)
[2021-07-29] MEDS: SUCRALFATE 1 GM/10 ML ORAL SUSP GT SCH ×4 (06:39→22:00)
[2021-07-29] MEDS: IPRATROPIUM BROM 0.5 MG/2.5ML INH SOL NEB PRN ×2 (06:55→22:43)
[2021-07-29] MEDS: ALBUTEROL SULF 2.5 MG/0.5ML(0.5%) NEB SOLN NEB PRN ×2 (06:55→22:43)
[2021-07-29] MEDS: DOPamine 1600MCG/ML D5W 250 ML IV SCH (08:37)
[2021-07-29 09:55] LABS: Potassium 3.4 mmol/L (3.5-5.1)
[2021-07-29 09:59] LABS: BUN/Creatinine Ratio 39.6
[2021-07-29] MEDS: ASPirin 81 mg TAB PO SCH (10:37)
[2021-07-29] MEDS: ISOSORBIDE MONONITRATE ER 60 MG TAB PO SCH (10:38)
[2021-07-29] MEDS: PANTOPRAZOLE 40 MG/10 ML VIAL INJ IV SCH (10:58)
[2021-07-29] MEDS: POTASSIUM CHL 20MEQ/100ML 100 ML IV SCH ×2 (10:59→13:27)
[2021-07-29] MEDS: methylPREDNISolone SOD SUCC 40 MG/ML VL IV SCH (10:59)
[2021-07-29] MEDS: ENOXAPARIN SOD 40 MG/0.4 ML SYRINGE SC SCH (10:59)
[2021-07-29] MEDS: hydrALAZINE HCL 20 MG/ML VL IV PRN ×2 (16:08→23:15)
[2021-07-29] MEDS: NOREPINEPHRINE 8 MG/250ML KIT 250 ML IV SCH (17:42)
[2021-07-29] MEDS: ATORVASTATIN 20 MG TAB PO SCH (22:00)
[2021-07-30] VITALS (13 sets, daily range): BP systolic 124–177; BP diastolic 64–94
[2021-07-30] MEDS: ACCU-CHEK COMFORT CURVE STRIP VI SCH ×4 (00:16→17:55)
[2021-07-30] MEDS: InsuLIN REG 1unit/0.01ml Soln (100units/ml) SC SCH ×4 (00:17→18:29)
[2021-07-30] MEDS: SUCRALFATE 1 GM/10 ML ORAL SUSP GT SCH ×4 (05:01→22:28)
[2021-07-30 06:30] LABS: Basophils # (auto) 0 10 ^3/uL (0-0.2); Basophils % (auto) 0.4 % (0.0-2.0); Eosinophils # (auto) 0 10 ^3/uL (0-0.8); Eosinophils % (auto) 0.1 % (0.0-7.0); Hematocrit 40.9 % (36.0-46.0); Hemoglobin 13.2 g/dL (12.2-16.2); Lymphocytes # (auto) 1.9 10 ^3/uL (0.4-5.4); Lymphocytes % (auto) 18.5 % (10.0-50.0); Mean Corpuscular Hemoglobin 27.9 pg (28.0-32.0); Mean Corpuscular Hgb Conc. 32.3 g/dL (32.0-36.0); Mean Corpuscular Volume 86.2 fL (80.0-100.0); Monocytes # (auto) 1.1 10 ^3/uL (0-1.3); Monocytes % (auto) 11.2 % (0.0-12.0); Neutrophils % (auto) 69.8 % (37.0-80.0); Nucleated Red Blood Cells % 0.2 %; Red Blood Cells 4.74 10^6/uL (4.0-5.20); Red Cell Distribution Width 19.1 % (11.8-14.3)
[2021-07-30 06:37] LABS: BUN/Creatinine Ratio 44.2; Calcium 11.1 mg/dL (8.5-10.1); Potassium 3.7 mmol/L (3.5-5.1)
[2021-07-30] MEDS: PANTOPRAZOLE 40 MG/10 ML VIAL INJ IV SCH (10:51)
[2021-07-30] MEDS: ASPirin 81 mg TAB PO SCH (10:51)
[2021-07-30] MEDS: ISOSORBIDE MONONITRATE ER 60 MG TAB PO SCH (10:52)
[2021-07-30] MEDS: ENOXAPARIN SOD 40 MG/0.4 ML SYRINGE SC SCH (17:55)
[2021-07-30] MEDS: ATORVASTATIN 20 MG TAB PO SCH (22:28)
[2021-07-31] MEDS: InsuLIN REG 1unit/0.01ml Soln (100units/ml) SC SCH ×5 (00:29→23:40)
[2021-07-31] MEDS: ACCU-CHEK COMFORT CURVE STRIP VI SCH ×5 (00:32→23:40)
[2021-07-31 05:00] VITALS: BP 139/78
[2021-07-31] MEDS: SUCRALFATE 1 GM/10 ML ORAL SUSP GT SCH ×4 (06:16→21:07)
[2021-07-31 06:25] LABS: Basophils # (auto) 0 10 ^3/uL (0-0.2); Basophils % (auto) 0.1 % (0.0-2.0); Eosinophils # (auto) 0 10 ^3/uL (0-0.8); Eosinophils % (auto) 0.3 % (0.0-7.0); Hematocrit 42.1 % (36.0-46.0); Hemoglobin 13.2 g/dL (12.2-16.2); Lymphocytes # (auto) 2.7 10 ^3/uL (0.4-5.4); Lymphocytes % (auto) 23.4 % (10.0-50.0); Mean Corpuscular Hemoglobin 28.1 pg (28.0-32.0); Mean Corpuscular Hgb Conc. 31.4 g/dL (32.0-36.0); Mean Corpuscular Volume 89.8 fL (80.0-100.0); Monocytes # (auto) 1.1 10 ^3/uL (0-1.3); Monocytes % (auto) 9.3 % (0.0-12.0); Neutrophils # (auto) 7.8 10 ^3/uL (1.6-8.6); Neutrophils % (auto) 66.9 % (37.0-80.0); Nucleated Red Blood Cells % 0.2 %; Red Blood Cells 4.69 10^6/uL (4.0-5.20); Red Cell Distribution Width 19.6 % (11.8-14.3); White Blood Cell 11.7 10^3/uL (4.4-10.8)
[2021-07-31 06:39] LABS: Calcium 10.4 mg/dL (8.5-10.1); Potassium 3.3 mmol/L (3.5-5.1)
[2021-07-31 06:42] LABS: BUN/Creatinine Ratio 45.8
[2021-07-31 10:31] VITALS: BP 146/83
[2021-07-31] MEDS: ASPirin 81 mg TAB PO SCH (10:38)
[2021-07-31] MEDS: ISOSORBIDE MONONITRATE ER 60 MG TAB PO SCH (10:38)
[2021-07-31] MEDS: PANTOPRAZOLE 40 MG/10 ML VIAL INJ IV SCH (10:38)
[2021-07-31] MEDS: ENOXAPARIN SOD 40 MG/0.4 ML SYRINGE SC SCH (10:39)
[2021-07-31] MEDS ORDERED: POTASSIUM EFFERVESENT TAB 25 MEQ GT ONE (10:45)
[2021-07-31] MEDS ORDERED: ASPI1CHW15 PO (11:04)
[2021-07-31] MEDS ORDERED: ATOR20TA50 PO (11:04)
[2021-07-31] MEDS ORDERED: ISO60SRT PO (11:04)
[2021-07-31 13:00] VITALS: BP 139/86
[2021-07-31] MEDS ORDERED: SENNA 8.6 MG TAB PO ONE (13:30)
[2021-07-31 16:37] VITALS: BP 126/76
[2021-07-31 20:00] VITALS: BP 141/72
[2021-07-31] MEDS: ATORVASTATIN 20 MG TAB PO SCH (21:07)
[2021-07-31 22:00] VITALS: BP 118/77
[2021-08-01 05:00] VITALS: BP 141/81
[2021-08-01] MEDS: SUCRALFATE 1 GM/10 ML ORAL SUSP GT SCH ×4 (06:25→21:51)
[2021-08-01] MEDS: ACCU-CHEK COMFORT CURVE STRIP VI SCH ×3 (06:29→17:09)
[2021-08-01] MEDS: InsuLIN REG 1unit/0.01ml Soln (100units/ml) SC SCH ×3 (06:29→17:09)
[2021-08-01 08:00] VITALS: BP 120/82
[2021-08-01] MEDS ORDERED: DOCUSATE SOD 100 MG CAP PO ONE (09:30)
[2021-08-01] MEDS: PANTOPRAZOLE 40 MG/10 ML VIAL INJ IV SCH (09:39)
[2021-08-01] MEDS: ASPirin 81 mg TAB PO SCH (09:40)
[2021-08-01] MEDS: SENNA 8.6 MG TAB PO SCH (09:40)
[2021-08-01] MEDS: ENOXAPARIN SOD 40 MG/0.4 ML SYRINGE SC SCH (09:41)
[2021-08-01] MEDS: ISOSORBIDE MONONITRATE ER 60 MG TAB PO SCH (09:42)
[2021-08-01 10:57] LABS: Calcium 9.7 mg/dL (8.5-10.1)
[2021-08-01 10:59] LABS: BUN/Creatinine Ratio 36.6
[2021-08-01 11:51] LABS: Potassium 2.9 mmol/L (3.5-5.1)
[2021-08-01 12:00] VITALS: BP 142/76
[2021-08-01] MEDS ORDERED: POTASSIUM EFFERVESENT TAB 25 MEQ PO ONE (12:00)
[2021-08-01] MEDS: POTASSIUM CHL 20MEQ/100ML 100 ML IV SCH ×3 (12:47→16:54)
[2021-08-01 16:00] VITALS: BP 141/73
[2021-08-01] MEDS: ATORVASTATIN 20 MG TAB PO SCH (21:51)
[2021-08-01 22:00] VITALS: BP 131/80
[2021-08-02 05:00] VITALS: BP 134/91
[2021-08-02] MEDS: InsuLIN REG 1unit/0.01ml Soln (100units/ml) SC SCH ×4 (06:00→18:08)
[2021-08-02] MEDS: ACCU-CHEK COMFORT CURVE STRIP VI SCH ×4 (06:00→18:07)
[2021-08-02 06:22] LABS: Basophils # (auto) 0 10 ^3/uL (0-0.2); Basophils % (auto) 0.4 % (0.0-2.0); Eosinophils # (auto) 0.1 10 ^3/uL (0-0.8); Eosinophils % (auto) 0.6 % (0.0-7.0); Hematocrit 39.3 % (36.0-46.0); Hemoglobin 12.5 g/dL (12.2-16.2); Lymphocytes # (auto) 2.7 10 ^3/uL (0.4-5.4); Lymphocytes % (auto) 27.4 % (10.0-50.0); Mean Corpuscular Hemoglobin 27.6 pg (28.0-32.0); Mean Corpuscular Hgb Conc. 31.8 g/dL (32.0-36.0); Mean Corpuscular Volume 86.8 fL (80.0-100.0); Monocytes # (auto) 0.8 10 ^3/uL (0-1.3); Monocytes % (auto) 8.5 % (0.0-12.0); Neutrophils # (auto) 6.3 10 ^3/uL (1.6-8.6); Neutrophils % (auto) 63.1 % (37.0-80.0); Nucleated Red Blood Cells % 0.2 %; Red Blood Cells 4.53 10^6/uL (4.0-5.20); Red Cell Distribution Width 19.1 % (11.8-14.3); White Blood Cell 9.9 10^3/uL (4.4-10.8)
[2021-08-02] MEDS: SUCRALFATE 1 GM/10 ML ORAL SUSP GT SCH ×4 (06:30→21:42)
[2021-08-02 06:35] LABS: BUN/Creatinine Ratio 33.9; Calcium 9.7 mg/dL (8.5-10.1); Potassium 3.6 mmol/L (3.5-5.1)
[2021-08-02 09:00] VITALS: BP 141/85
[2021-08-02] MEDS: ASPirin 81 mg TAB PO SCH (10:11)
[2021-08-02] MEDS: PANTOPRAZOLE 40 MG/10 ML VIAL INJ IV SCH (10:11)
[2021-08-02] MEDS: ENOXAPARIN SOD 40 MG/0.4 ML SYRINGE SC SCH (10:12)
[2021-08-02] MEDS: ISOSORBIDE MONONITRATE ER 60 MG TAB PO SCH (10:12)
[2021-08-02] MEDS: SENNA 8.6 MG TAB PO SCH (10:12)
[2021-08-02 13:16] VITALS: BP 141/73
[2021-08-02 17:07] VITALS: BP 120/69
[2021-08-02 17:26] VITALS: BP 120/69
[2021-08-02] MEDS: ATORVASTATIN 20 MG TAB PO SCH (21:42)
[2021-08-02 22:00] VITALS: BP 122/73
[2021-08-03] MEDS: ACCU-CHEK COMFORT CURVE STRIP VI SCH
[2021-08-03] MEDS: InsuLIN REG 1unit/0.01ml Soln (100units/ml) SC SCH
== END 2021-08-03 01:00 | disposition home health service (06) | DRG 853 ==
LOC: EDBD 13:19 → ER 13:19 → ICU CENTRL 17:28 → OVERFLOW 07-20 01:03 → DOU IN ICU 07-20 08:46 → TELE-CENTR 07-30 08:00
PROVIDERS: ADMIT Hospitalist; ATTEND Internal Medicine Pulmonary Disease
PROC: 5A1955Z Respiratory Ventilation, Greater than 96 Consecutive Hours (ICD-10-PCS; principal; 2021-07-19)
PROC: 5A09357 Assistance with Respiratory Ventilation, Less than 24 Consecutive Hours, Continuous Positive Airway Pressure (ICD-10-PCS; 2021-07-19)
PROC: 0BH17EZ Insertion of Endotracheal Airway into Trachea, Via Natural or Artificial Opening (ICD-10-PCS; 2021-07-19)
PROC: 02HV33Z Insertion of Infusion Device into Superior Vena Cava, Percutaneous Approach (ICD-10-PCS; 2021-07-22)
PROC: 0JH606Z Insertion of Pacemaker, Dual Chamber into Chest Subcutaneous Tissue and Fascia, Open Approach (ICD-10-PCS; 2021-07-25)
PROC: 02H63JZ Insertion of Pacemaker Lead into Right Atrium, Percutaneous Approach (ICD-10-PCS; 2021-07-25)
PROC: 02HK3JZ Insertion of Pacemaker Lead into Right Ventricle, Percutaneous Approach (ICD-10-PCS; 2021-07-25)
PROC: 02HL3JZ Insertion of Pacemaker Lead into Left Ventricle, Percutaneous Approach (ICD-10-PCS; 2021-07-25)
PROC: 5A09357 Assistance with Respiratory Ventilation, Less than 24 Consecutive Hours, Continuous Positive Airway Pressure (ICD-10-PCS; 2021-07-29)
PROC: 5A09357 Assistance with Respiratory Ventilation, Less than 24 Consecutive Hours, Continuous Positive Airway Pressure (ICD-10-PCS; 2021-07-30)
DX: A41.9 Sepsis, unspecified organism (principal); J96.21 Acute and chronic respiratory failure with hypoxia; J15.6 Pneumonia due to other Gram-negative bacteria; J96.22 Acute and chronic respiratory failure with hypercapnia; R57.0 Cardiogenic shock; J44.1 Chronic obstructive pulmonary disease with (acute) exacerbation; I16.9 Hypertensive crisis, unspecified; E87.2 Acidosis; E66.2 Morbid (severe) obesity with alveolar hypoventilation; J44.0 Chronic obstructive pulmonary disease with (acute) lower respiratory infection; J45.901 Unspecified asthma with (acute) exacerbation; N17.9 Acute kidney failure, unspecified; J98.11 Atelectasis; I50.32 Chronic diastolic (congestive) heart failure; I13.0 Hypertensive heart and chronic kidney disease with heart failure and stage 1 through stage 4 chronic kidney disease, or unspecified chronic kidney disease; E87.0 Hyperosmolality and hypernatremia; Z99.11 Dependence on respirator [ventilator] status; E86.1 Hypovolemia; F12.90 Cannabis use, unspecified, uncomplicated; D64.9 Anemia, unspecified; F17.200 Nicotine dependence, unspecified, uncomplicated; J84.10 Pulmonary fibrosis, unspecified; K57.30 Diverticulosis of large intestine without perforation or abscess without bleeding; I48.91 Unspecified atrial fibrillation; E87.6 Hypokalemia; Z20.822 Contact with and (suspected) exposure to COVID-19; N18.30 Chronic kidney disease, stage 3 unspecified; K21.9 Gastro-esophageal reflux disease without esophagitis; K29.70 Gastritis, unspecified, without bleeding; M10.9 Gout, unspecified; Z68.37 Body mass index [BMI] 37.0-37.9, adult; Z88.8 Allergy status to other drugs, medicaments and biological substances; Z88.0 Allergy status to penicillin; I49.5 Sick sinus syndrome
CPT/HCPCS: 31500; 33208; 33225; 36415; 36556; 36600; 70450; 71045; 71275; 74018; 80048; 80053; 80202; 81001; 82728; 82805; 82962; 83036; 83605; 83615; 83735; 83880; 84132; 84484; 85007; 85025; 85027; 85379; 85610; 85730; 86141; 86850; 86900; 86901; 87040; 87070; 87077; 87081; 87086; 87186; 87205; 87426; 92610; 93005; 93306; 93970; 94002; 94003; 94640; 94660; 96365; 96366; 96367; 96372; 96375; 96376; 99152; 99153; 99291; C1785; C9113; G0378; J0330; J1815; J2185; J2250; J2704; J3480; J7060